=== PATIENT | female | born 1950 | race Two or more races ===

== ENCOUNTER 2020-01-13 10:45 | Inpatient (IN) | payer MEDICARE ==
[~2020-01-13] VITALS: Ht 157.5 cm; Wt 82.6 kg
--- NOTE | 2020-01-13 11:58 | NUR ---
PT OXYGEN 88% RA. PT PLACED ON 2L OXYGEN VIA NC. OXYGEN INCREASED TO HIGH 90s. PIV PLACED. LABS AND 2 SETS BLOOD CX DRAWN AND COLLECTED BY [employer] SUPERVISOR. XRAY AT BEDSIDE.
[2020-01-13 12:09] LABS: BASOPHILS % (AUTO) 1 % (0-1); EOSINOPHILS % (AUTO) 0 % (1-7); LYMPHOCYTES % (AUTO) 8 % (22-44); MEAN CORPUSCULAR HEMOGLOBIN 31.7 pg (27.0-34.8); MEAN CORPUSCULAR HGB CONC 33.8 g/dL (32.4-35.8); MEAN PLATELET VOLUME 9.6 fL (7.4-10.4); MONOCYTES % (AUTO) 9 % (2-9); NEUTROPHILS % (AUTO) 83 % (42-75); PLATELET COUNT 148 x10^3/uL (130-400); RED BLOOD COUNT 4.52 x10^6/uL (3.82-5.3); RED CELL DISTRIBUTION WIDTH 12.7 % (9.6-15.2)
[2020-01-13 12:20] LABS: CHLORIDE 99 mmol/L (98-107)
--- NOTE | 2020-01-13 12:24 | NUR ---
PT AMBULATED TO RESTROOM WITH STEADY GAIT TO PROVIDE URINE SAMPLE. UA COLLECTED AND SENT TO LAB.
[2020-01-13] MEDS ORDERED: AZITHROMYCIN 500 MG in SODIUM CHLORIDE 0.9% 250 ML IVPB ONE (12:30)
[2020-01-13] MEDS ORDERED: SODIUM CHLORIDE FLUSH 10ML SYR IVF PRN (12:30)
[2020-01-13] MEDS ORDERED: CEFTRIAXONE PMX 1GM/50ML 50 ML IVPB ONE (12:30)
[2020-01-13 12:32] LABS: ALANINE AMINOTRANSFERASE 178 U/L (12-78); ALKALINE PHOSPHATASE 78 U/L (45-117); ANION GAP 7 mmol/L (5-15); BILIRUBIN,TOTAL 0.7 mg/dL (0.2-1.0); CALCIUM 8.5 mg/dL (8.5-10.1); CREATININE 0.91 mg/dL (0.55-1.02); D-DIMER (DIC) 0.58 ug/mlFEU (0.00-0.52); PROTIME 10.2 Seconds (9.6-11.5); TOTAL PROTEIN 7.5 g/dL (6.4-8.2)
--- NOTE | 2020-01-13 12:44 | NUR ---
AT BEDSIDE TO UPDATE PT ON POC. PT TO BE ADMITTED.
[2020-01-13 12:47] LABS: MICROSCOPIC AUTO
[2020-01-13] MEDS ORDERED: CEFTRIAXONE PMX 1GM/50ML 50 ML ONE (12:48)
[2020-01-13 12:49] LABS: MD SCAN
--- NOTE | 2020-01-13 13:03 | NUR ---
IV ABX STARTED PER MAY. BLOOD CX COLLECTED PRIOR TO ADMIN.
--- NOTE | 2020-01-13 14:04 | NUR ---
PT ADMIT HOLD IN ER. PT TRANSFERRED TO HOSPITAL BED.
[2020-01-13] MEDS ORDERED: LACTATED RINGERS 1,000 ML IV SCH (16:15)
[2020-01-13] MEDS ORDERED: ENOXAPARIN 40 MG/0.4 ML ONE (16:20)
[2020-01-13] MEDS ORDERED: ONDANSETRON 2MG/ML, 2ML IVPush PRN (16:30)
[2020-01-13] MEDS ORDERED: ACETAMINOPHEN 325 MG TABLET PO PRN (16:30)
[2020-01-13] MEDS ORDERED: IBUPROFEN 600 MG TABLET PO PRN (16:30)
[2020-01-13] MEDS ORDERED: ENALAPRILAT 1.25 MG/ML, 2ML IVPush PRN (16:30)
[2020-01-13] MEDS ORDERED: TELM1TAB28 PO (17:05)
[2020-01-13] MEDS ORDERED: ATOR20TA37 PO (17:05)
[2020-01-13] MEDS: ENOXAPARIN 40 MG/0.4 ML SQ SCH (17:06)
--- NOTE | 2020-01-13 17:07 | NUR ---
PT GIVEN DIET TRAY. DAUGHTER AT BEDSIDE. IVF RUNNING PER MAY. PT RESTING COMFORTABLY ON HOSPITAL BED. DENIES NEEDS AT THIS TIME. BEDSIDE COMMODE IN ROOM.
[2020-01-13] MEDS ORDERED: methylPREDNISolone SOD SUCC 40 MG/ML ONE (20:52)
[2020-01-13] MEDS ORDERED: THIAMINE 100MG TABLET ONE (20:52)
[2020-01-13] MEDS ORDERED: FAMOTIDINE 10 MG TAB ONE (20:52)
[2020-01-13] MEDS ORDERED: ASCORBIC ACID 500 MG TABLET ONE (21:07)
[2020-01-13] MEDS: methylPREDNISolone SOD SUCC 40 MG/ML IVPush SCH (21:09)
[2020-01-13] MEDS: ASCORBIC ACID 500 MG TABLET PO SCH (21:09)
[2020-01-13] MEDS: THIAMINE 100MG TABLET PO SCH (21:09)
[2020-01-13] MEDS: FAMOTIDINE 20 MG TABLET PO SCH (21:09)
--- NOTE | 2020-01-13 23:05 | NUR ---
Pt sleeping on bed. Tachypnea noted. Pt on 3L NC. Positive chest rise and fall noted. Pt remains on all monitors.
--- NOTE | 2020-01-13 23:59 | NUR ---
Pt awakens easily. Pt remains on 3L NC. NAD. Mild tachypnea remains.
--- NOTE | 2020-01-14 02:28 | NUR ---
Pt awake and resting on bed. NAD. Pt remains on monitors.
--- NOTE | 2020-01-14 05:02 | NUR ---
Report given to MARIA VICTORIA Hirsch
[2020-01-14 05:18] LABS: BASOPHILS % (AUTO) 0 % (0-1); EOSINOPHILS % (AUTO) 0 % (1-7); LYMPHOCYTES % (AUTO) 17 % (22-44); MEAN CORPUSCULAR HEMOGLOBIN 32.2 pg (27.0-34.8); MEAN CORPUSCULAR HGB CONC 34.6 g/dL (32.4-35.8); MEAN PLATELET VOLUME 9.9 fL (7.4-10.4); MONOCYTES % (AUTO) 11 % (2-9); NEUTROPHILS % (AUTO) 72 % (42-75); PLATELET COUNT 147 x10^3/uL (130-400); RED BLOOD COUNT 4.43 x10^6/uL (3.82-5.3); RED CELL DISTRIBUTION WIDTH 12.8 % (9.6-15.2)
[2020-01-14 05:22] LABS: ALBUMIN 2.6 g/dL (3.4-5.0); ANION GAP 9 mmol/L (5-15); CALCIUM 8.1 mg/dL (8.5-10.1); CHLORIDE 101 mmol/L (98-107)
[2020-01-14 05:25] LABS: ALANINE AMINOTRANSFERASE 131 U/L (12-78); ALKALINE PHOSPHATASE 69 U/L (45-117); BILIRUBIN,TOTAL 0.7 mg/dL (0.2-1.0); CHOL/HDL RATIO 2.1; CHOLESTEROL, TOTAL 108 mg/dL (140-239); CREATININE 0.81 mg/dL (0.55-1.02); HDL CHOL % 48 % (28-40); HDL CHOLESTEROL (DIRECT) 52 mg/dL (40-60); LDL CHOLESTEROL,CALCULATED 29 mg/dL (54-169); LDL/HDL RATIO 0.6 (0.5-3.0); TOTAL PROTEIN 6.9 g/dL (6.4-8.2); TRIGLYCERIDES 133 mg/dL (50-200); VLDL CHOLESTEROL 27 mg/dL (0-25)
[2020-01-14 05:39] LABS: MD NO
--- NOTE | 2020-01-14 06:11 | NUR ---
PT RESTING ON HOSPITAL BED, NO NEEDS AT THIS TIME, VSS.
[2020-01-14 08:00] VITALS: BP 136/70
[2020-01-14] MEDS ORDERED: methylPREDNISolone SOD SUCC 125 MG/2 ML ONE (08:44)
[2020-01-14] MEDS ORDERED: ASCORBIC ACID 500 MG TABLET ONE ×3 (08:44→19:31)
[2020-01-14] MEDS ORDERED: THIAMINE 100MG TABLET ONE ×2 (08:49→19:30)
[2020-01-14] MEDS: ZINC SULFATE 220 MG CAPSULE PO SCH (09:22)
[2020-01-14] MEDS: THIAMINE 100MG TABLET PO SCH ×2 (09:22→20:43)
[2020-01-14] MEDS: methylPREDNISolone SOD SUCC 40 MG/ML IVPush SCH ×2 (09:22→20:42)
[2020-01-14] MEDS: ASCORBIC ACID 500 MG TABLET PO SCH ×3 (09:22→20:42)
[2020-01-14] MEDS: CHOLECALCIFEROL 5,000u TAB PO SCH (09:22)
[2020-01-14] MEDS: FAMOTIDINE 20 MG TABLET PO SCH ×2 (09:29→20:43)
--- NOTE | 2020-01-14 10:26 | NUR ---
ASSUMED CARE FROM MARIA VICTORIA KASPER. PT RESTING IN [facility], TALKING ON CELL PHONE. PT REPORTS NO COMPLAINTS AT THIS TIME.
[2020-01-14] MEDS ORDERED: CEFTRIAXONE PMX 1GM/50ML 50 ML ONE (11:49)
[2020-01-14] MEDS: CEFTRIAXONE PMX 1GM/50ML 50 ML IV SCH (11:52)
[2020-01-14] MEDS: AZITHROMYCIN 500 MG in SODIUM CHLORIDE 0.9% 250 ML IV SCH (13:08)
[2020-01-14] MEDS ORDERED: POTASSIUM CHLORIDE 20 MEQ TAB.ER.PRT ONE ×2 (13:17→15:50)
--- NOTE | 2020-01-14 13:24 | NUR ---
PT RESTING IN [facility], NO COMPLAINTS AT THIS TIME.
[2020-01-14] MEDS ORDERED: POTASSIUM CHLORIDE 20 MEQ TAB.ER.PRT PO ONE ×2 (13:30→15:30)
--- NOTE | 2020-01-14 14:21 | NUR ---
MEAL TRAY PROVIDED TO PT. PT REPORTS NO COMPLAINTS AT THIS TIME.
[2020-01-14] MEDS ORDERED: NEOSPORIN OINT. PKT 1 PACKET ONE (14:24)
[2020-01-14] MEDS ORDERED: ENOXAPARIN 40 MG/0.4 ML ONE (16:43)
[2020-01-14] MEDS: ENOXAPARIN 40 MG/0.4 ML SQ SCH (16:46)
--- NOTE | 2020-01-14 16:46 | NUR ---
PT RESTING IN [facility], NO COMPLAINTS AT THIS TIME.
--- NOTE | 2020-01-14 17:31 | NUR ---
REPORT GIVEN TO MARIA VICTORIA ANG
--- NOTE | 2020-01-14 18:23 | NUR ---
PT RESTING IN [facility], NO COMPLAINTS AT THIS TIME.
[2020-01-14] MEDS ORDERED: methylPREDNISolone SOD SUCC 40 MG/ML ONE (19:30)
[2020-01-14] MEDS ORDERED: FAMOTIDINE 10 MG TAB ONE (19:31)
--- NOTE | 2020-01-14 20:44 | NUR ---
PT MEDICATED PER EMAR. PT RESTING IN HOSPITAL BED, NO COMPLAINTS AT THIS TIME.
--- NOTE | 2020-01-14 21:59 | NUR ---
Report received from MARIA VICTORIA Jovel. Pt sleeping on gurney. Positive chest rise and fall noted. Pt remains on 2L NC. VSS.
--- NOTE | 2020-01-15 01:10 | NUR ---
Pt sleeping on bed. Pt noted to have HR in the high 40's while asleep. Pt seen repositioning self. Pt on 3L NC. Pt remains on monitors.
[2020-01-15] MEDS ORDERED: ENALAPRILAT 1.25 MG/ML, 1ML ONE (02:26)
--- NOTE | 2020-01-15 02:44 | NUR ---
Pt medicated with PRN BP med for BP 191/92. Pt awakens easily. Pt remains on 3L NC. Pt remains on full monitors.
--- NOTE | 2020-01-15 02:49 | NUR ---
Report given to MARIA VICTORIA Martinez
--- NOTE | 2020-01-15 04:06 | NUR ---
PT SLEEPING, DENIES PAIN, NO NEEDS AT THIS TIME
--- NOTE | 2020-01-15 05:43 | NUR ---
PT SLEEPING. CALL LIGHT WITHIN REACH
--- NOTE | 2020-01-15 06:36 | NUR ---
PT SLEEPING, CALL LIGHT WITHIN REACH
--- NOTE | 2020-01-15 07:03 | NUR ---
REPORT FROM NOC RN, ASSUMED CARE OF PT. VSS AT THIS TIME, NO NEEDS
[2020-01-15] MEDS ORDERED: methylPREDNISolone SOD SUCC 40 MG/ML ONE ×2 (09:00→20:46)
[2020-01-15] MEDS ORDERED: THIAMINE 100MG TABLET ONE ×2 (09:00→20:46)
[2020-01-15] MEDS ORDERED: CHOLECALCIFEROL 5,000u TAB ONE (09:01)
[2020-01-15] MEDS ORDERED: ZINC SULFATE 220 MG CAPSULE ONE (09:01)
[2020-01-15] MEDS ORDERED: ASCORBIC ACID 500 MG TABLET ONE ×3 (09:01→20:47)
[2020-01-15] MEDS: methylPREDNISolone SOD SUCC 40 MG/ML IVPush SCH ×2 (09:12→21:35)
[2020-01-15] MEDS: ASCORBIC ACID 500 MG TABLET PO SCH ×3 (09:13→21:35)
[2020-01-15] MEDS: CHOLECALCIFEROL 5,000u TAB PO SCH (09:13)
[2020-01-15] MEDS: ZINC SULFATE 220 MG CAPSULE PO SCH (09:13)
[2020-01-15] MEDS: THIAMINE 100MG TABLET PO SCH ×2 (09:13→21:36)
--- NOTE | 2020-01-15 09:14 | NUR ---
RN IN TO MEDICATE PT PER MAY, PT REQUIRING MULTIPLE REMINDERS TO PUT MASK ON/LEAVE ON DURING ASSESSMENT. PT GIVEN MEAL TRAY. MEDICATION SLIP SENT TO PHARM FOR NEWLY ORDERED BP MEDICATION. VSS AT THIS TIME. NO OTHER NEEDS
[2020-01-15 09:38] LABS: ALANINE AMINOTRANSFERASE 142 U/L (12-78); ALBUMIN 2.8 g/dL (3.4-5.0); ANION GAP 7 mmol/L (5-15); CALCIUM 9.1 mg/dL (8.5-10.1); CHLORIDE 108 mmol/L (98-107); CREATININE 0.92 mg/dL (0.55-1.02)
--- NOTE | 2020-01-15 09:38 | NUR ---
LAB IN TO REDRAW PT LABS, PHARM CALLED FOR MED REQUEST
[2020-01-15 09:41] LABS: ALKALINE PHOSPHATASE 74 U/L (45-117); BILIRUBIN,TOTAL 0.5 mg/dL (0.2-1.0)
[2020-01-15] MEDS: HYDROCHLOROTHIAZIDE 12.5 MG CAPSULE PO SCH (09:47)
--- NOTE | 2020-01-15 09:57 | NUR ---
WENT INTO PT'S ROOM FOR MONITOR CHECK; PT'S O2 SAT WAS IN THE 70'S. REAPPLIED O2 ON PT AND PT PULLED DOWN MASK AND COUGHED IN MY FACE I WAS ADJUSTING O2. PT EDUCATED ON NEED TO KEEP MASK/O2 ON AND ISO PRECAUTIONS. PT NOW SATING AT 96%.
--- NOTE | 2020-01-15 12:32 | NUR ---
DISCUSSED POC WITH DAUGHTER ON PHONE PER PT REQUEST. MD IN TO EVAL PT, PT CARE DISCUSSED. UPDATED MD PT QUICKLY DESATS TO 70% WHEN SHE REMOVES O2 WHICH SHE FREQUENTLY DOES DESPITE EDUCATION. PT INNAY RESTING ON HOSPITAL BED, VSS. MEAL TRAY ORDERED
[2020-01-15] MEDS ORDERED: CEFTRIAXONE PMX 1GM/50ML 50 ML ONE (12:51)
[2020-01-15] MEDS: CEFTRIAXONE PMX 1GM/50ML 50 ML IV SCH (12:58)
[2020-01-15] MEDS: AZITHROMYCIN 500 MG in SODIUM CHLORIDE 0.9% 250 ML IV SCH (14:34)
[2020-01-15] MEDS: ENOXAPARIN 40 MG/0.4 ML SQ SCH (16:06)
--- NOTE | 2020-01-15 18:46 | NUR ---
REPORT TO IMAN IRENE
[2020-01-15] MEDS: FAMOTIDINE 20 MG TABLET PO SCH (21:00)
--- NOTE | 2020-01-16 03:03 | NUR ---
Patient offers no complaints through out the shift. Kept mask on when screen writer was in the room. Kept oxygen on with O2 remaining above 90% on 3L NC. Patient resting comfortabley, VSS. Will con't to montior patient
--- NOTE | 2020-01-16 06:55 | NUR ---
REPORT FROM IMAN, ASSUME CARE OF PT AT THIS TIME. PT SLEEPING, NAD. REVIEW OF CHART AND MEDICATIONS. MED REQUEST TO PHARM FOR DAY MEDS.
[2020-01-16] MEDS ORDERED: CHOLECALCIFEROL 5,000u TAB ONE (07:26)
[2020-01-16] MEDS ORDERED: ASCORBIC ACID 500 MG TABLET ONE (07:27)
[2020-01-16] MEDS ORDERED: THIAMINE 100MG TABLET ONE (08:40)
[2020-01-16] MEDS ORDERED: ZINC SULFATE 220 MG CAPSULE ONE (08:40)
--- NOTE | 2020-01-16 09:15 | NUR ---
NOTIFIED BY KEY CUTTER, PT HR RANGING FROM 140S TO 180. EKG COMPLETED AT BS. AFIB W/RVR. PT DENIES CP, STATES FEELS HR GOING FAST, SLIGHT SOB. [facility] CALLED, VM LEFT.
[2020-01-16] MEDS ORDERED: methylPREDNISolone SOD SUCC 40 MG/ML ONE (09:32)
[2020-01-16] MEDS ORDERED: METOPROLOL 1 MG/ML, 5ML ONE (09:32)
[2020-01-16] MEDS: LOSARTAN 100 MG TAB PO SCH (09:40)
[2020-01-16] MEDS ORDERED: METOPROLOL 1 MG/ML, 5ML IVPush SCH (09:40)
[2020-01-16] MEDS: methylPREDNISolone SOD SUCC 40 MG/ML IVPush SCH ×2 (09:40→21:28)
[2020-01-16] MEDS: CHOLECALCIFEROL 5,000u TAB PO SCH (09:41)
[2020-01-16] MEDS: ZINC SULFATE 220 MG CAPSULE PO SCH (09:41)
[2020-01-16] MEDS: THIAMINE 100MG TABLET PO SCH ×2 (09:41→21:29)
[2020-01-16] MEDS: ASCORBIC ACID 500 MG TABLET PO SCH ×3 (09:44→21:29)
[2020-01-16] MEDS: HYDROCHLOROTHIAZIDE 12.5 MG CAPSULE PO SCH (09:44)
--- NOTE | 2020-01-16 09:45 | NUR ---
CALL TO [facility] FLOOR, TO GET ORDERS FROM [facility]. VO FOR METOPROLOL 5MG IVP/GIVEN WITH RATE DECREASE TO 110-120S, AFIB. ALL OTHER AM MEDS GIVEN, MEAL TRAY PROVIDED. PT ASSISTED WITH REPOSITIONING. IV NS AT TKO RATE. VS UPDATED IN COMPUTER. PT STATES SMALL HALL, DENIES OTHER PAIN. OCCASIONAL COUGH, LS DIMINISHED. PT EATING BREAKFAST, CALL LIGHT WITHIN REACH.
[2020-01-16] MEDS ORDERED: ENALAPRILAT 1.25 MG/ML, 2ML IVPush PRN (10:30)
--- NOTE | 2020-01-16 10:59 | NUR ---
[facility] IN TO SEE PT. PT NOW IN NSR. 100% BREAKFAST TRAY EATEN. PT RESTING, SPEAKING ON PHONE WITH FAMILY. CALL LIGHT WITHIN REACH.
[2020-01-16] MEDS: CEFTRIAXONE PMX 1GM/50ML 50 ML IV SCH (12:30)
[2020-01-16] MEDS ORDERED: CEFTRIAXONE PMX 1GM/50ML 50 ML ONE (12:30)
[2020-01-16] MEDS: AZITHROMYCIN 500 MG in SODIUM CHLORIDE 0.9% 250 ML IV SCH (13:00)
--- NOTE | 2020-01-16 13:12 | NUR ---
VSS/UPDATED IN COMPUTER. PT DENIES ANY SYMPTOMS AT THIS TIME BESIDES BODY ACHES AND OCCASIONAL COUGH. LUNCH TRAY PROVIDED. CALL LIGHT WITHIN REACH.
--- NOTE | 2020-01-16 14:09 | NUR ---
REPORT TO CHELSEY GOYAL READY FOR TRANSPORT TO FLOOR.
[2020-01-16 15:30] VITALS: BP 184/80
[2020-01-16] MEDS: METOPROLOL TARTRATE 25 MG TAB PO SCH (17:51)
[2020-01-16 19:10] VITALS: BP 181/90
[2020-01-16] MEDS: ENOXAPARIN 40 MG/0.4 ML SQ SCH (21:00)
[2020-01-16 21:23] VITALS: BP 194/84
[2020-01-16] MEDS: FAMOTIDINE 20 MG TABLET PO SCH (21:28)
[2020-01-16 22:28] VITALS: BP 180/94
[2020-01-16 23:26] VITALS: BP 192/91
[2020-01-17] VITALS (7 sets, daily range): BP systolic 115–198; BP diastolic 68–99
[2020-01-17] MEDS ORDERED: hydrALAzine 20 MG/ML, 1ML IV PRN ×2
[2020-01-17] MEDS ORDERED: ENALAPRILAT 1.25 MG/ML, 2ML IV PRN ×2
[2020-01-17] MEDS: METOPROLOL TARTRATE 25 MG TAB PO SCH (04:50)
[2020-01-17] MEDS: THIAMINE 100MG TABLET PO SCH ×2 (07:50→20:09)
[2020-01-17] MEDS: LOSARTAN 100 MG TAB PO SCH (07:50)
[2020-01-17] MEDS: ZINC SULFATE 220 MG CAPSULE PO SCH (07:50)
[2020-01-17] MEDS: ASCORBIC ACID 500 MG TABLET PO SCH ×3 (07:51→20:09)
[2020-01-17] MEDS: methylPREDNISolone SOD SUCC 40 MG/ML IVPush SCH ×2 (07:51→20:09)
[2020-01-17] MEDS: CHOLECALCIFEROL 5,000u TAB PO SCH (07:51)
[2020-01-17] MEDS: HYDROCHLOROTHIAZIDE 12.5 MG CAPSULE PO SCH (07:51)
[2020-01-17] MEDS: ENOXAPARIN 40 MG/0.4 ML SQ SCH ×2 (07:52→20:09)
[2020-01-17 10:37] LABS: ALBUMIN 2.7 g/dL (3.4-5.0); ANION GAP 11 mmol/L (5-15); CALCIUM 8.9 mg/dL (8.5-10.1); CHLORIDE 110 mmol/L (98-107)
[2020-01-17 10:41] LABS: ALANINE AMINOTRANSFERASE 105 U/L (12-78); ALKALINE PHOSPHATASE 73 U/L (45-117); BILIRUBIN,TOTAL 0.5 mg/dL (0.2-1.0); CREATININE 0.99 mg/dL (0.55-1.02); TOTAL PROTEIN 7.4 g/dL (6.4-8.2)
[2020-01-17] MEDS: CEFTRIAXONE PMX 1GM/50ML 50 ML IV SCH (13:02)
[2020-01-17] MEDS: AZITHROMYCIN 500 MG in SODIUM CHLORIDE 0.9% 250 ML IV SCH (16:12)
[2020-01-17] MEDS ORDERED: CARVEDILOL 6.25 MG TABLET PO SCH (18:00)
[2020-01-17] MEDS: FAMOTIDINE 20 MG TABLET PO SCH (20:09)
[2020-01-18 00:46] VITALS: BP 156/84
[2020-01-18 06:58] VITALS: BP 170/92
[2020-01-18] MEDS: ASCORBIC ACID 500 MG TABLET PO SCH ×3 (08:51→21:05)
[2020-01-18] MEDS: methylPREDNISolone SOD SUCC 40 MG/ML IVPush SCH ×2 (08:51→21:05)
[2020-01-18] MEDS: THIAMINE 100MG TABLET PO SCH ×2 (08:52→21:05)
[2020-01-18] MEDS: ZINC SULFATE 220 MG CAPSULE PO SCH (08:52)
[2020-01-18] MEDS: LOSARTAN 100 MG TAB PO SCH (08:52)
[2020-01-18] MEDS: ENOXAPARIN 40 MG/0.4 ML SQ SCH ×2 (08:54→21:07)
[2020-01-18] MEDS: CHOLECALCIFEROL 5,000u TAB PO SCH (08:54)
[2020-01-18] MEDS: HYDROCHLOROTHIAZIDE 12.5 MG CAPSULE PO SCH (08:55)
[2020-01-18 11:42] VITALS: BP 166/68
[2020-01-18] MEDS: CEFTRIAXONE PMX 1GM/50ML 50 ML IV SCH (12:04)
[2020-01-18] MEDS: AZITHROMYCIN 500 MG in SODIUM CHLORIDE 0.9% 250 ML IV SCH (13:22)
[2020-01-18 20:21] VITALS: BP 182/77
[2020-01-18] MEDS: FAMOTIDINE 20 MG TABLET PO SCH (21:05)
[2020-01-18 23:39] VITALS: BP 203/102
[2020-01-19 00:07] VITALS: BP 166/106
[2020-01-19] MEDS: LOSARTAN 100 MG TAB PO SCH (08:07)
[2020-01-19] MEDS: CHOLECALCIFEROL 5,000u TAB PO SCH (08:07)
[2020-01-19] MEDS: methylPREDNISolone SOD SUCC 40 MG/ML IVPush SCH (08:08)
[2020-01-19] MEDS: ASCORBIC ACID 500 MG TABLET PO SCH (08:08)
[2020-01-19] MEDS: ZINC SULFATE 220 MG CAPSULE PO SCH (08:08)
[2020-01-19] MEDS: HYDROCHLOROTHIAZIDE 12.5 MG CAPSULE PO SCH (08:08)
[2020-01-19] MEDS: THIAMINE 100MG TABLET PO SCH (08:09)
[2020-01-19] MEDS: ENOXAPARIN 40 MG/0.4 ML SQ SCH (08:09)
[2020-01-19] MEDS ORDERED: ENOXAPARIN 40 MG/0.4 ML SQ SCH (09:00)
[2020-01-19 10:01] VITALS: BP 122/73
[2020-01-19] MEDS: CEFTRIAXONE PMX 1GM/50ML 50 ML IV SCH (12:45)
[2020-01-19 12:48] VITALS: BP 155/66
[2020-01-19] MEDS: AZITHROMYCIN 500 MG in SODIUM CHLORIDE 0.9% 250 ML IV SCH (13:40)
[2020-01-19] MEDS ORDERED: DEXA6TAB6 PO (14:50)
[2020-01-19] MEDS ORDERED: ZINC220C7 PO (14:50)
[2020-01-19] MEDS ORDERED: ASCO500T9 PO (14:50)
== END 2020-01-19 16:39 | disposition home or self-care (01) | DRG 177 ==
LOC: ED 12:12 → EDIP 12:29 → SUATTDRO 13:16 → 4EST 01-16 14:34
PROVIDERS: ADMIT Hospitalist; ATTEND Internal Medicine
DX: U07.1 COVID-19 (principal); J96.01 Acute respiratory failure with hypoxia; J12.89 Other viral pneumonia; E43 Unspecified severe protein-calorie malnutrition; E87.1 Hypo-osmolality and hyponatremia; K80.20 Calculus of gallbladder without cholecystitis without obstruction; E87.6 Hypokalemia; D72.810 Lymphocytopenia; I16.0 Hypertensive urgency; I48.91 Unspecified atrial fibrillation; Z68.33 Body mass index [BMI] 33.0-33.9, adult
CPT/HCPCS: 36415; 71045; 76700; 80053; 80061; 81001; 82728; 82962; 83605; 83615; 84145; 85025; 85049; 85379; 85384; 85610; 85730; 86140; 86704; 86706; 86708; 86803; 87040; 87340; 87635; 93005; 99283; G0378; J0456; J0696; J1650; J2920; J7050; J7120